=== PATIENT | male | born 1940 | race Caucasian/White ===

== ENCOUNTER → 2021-03-09 | Outpatient (CLI) | payer OTHER, MEDICARE ==
[~2021-03-09] MED LIST: ACET32TAB PO; ACET65TA OR; ALDA25TA2 OR; ALLO100T PO; ALLO300T PO; ASPI81TA83 OR; ATEN100T PO; ATEN25TA PO; ATEN50TA2 OR; CIPR500T4 OR; COLC1TAB14 PO; COUM1TAB17 OR; COUM1TAB18 OR; CYAN500T14 PO; D31000TA2 PO; ELIQ5TAB PO; ENAL10TA2 OR; FLAG500T OR; FLOM0.4C39 OR; FURO40TA2 PO; FURO80TA2 PO; INSUDET SC; INSUH10VL SC; INSULANT SC; IRON65TA2 PO; LASI40TA OR; LASI80TA OR; LOSA25TA14 PO; MAGN400C PO; NIAS500T2 OR; NOVOINJ3 SC; PRAV1TAB39 PO; SIMV20TA22 PO; SPIR-10 PO; SPIR25TA2 OR; VIT D 2000 PO; VITA-243 PO; VITA-56 PO; VITA500T OR; VITA500T PO; VITAMIN B12 PO; WARF1TAB OR; humalog SC; prevachol PO
== END ==
LOC: M LABSMTC 11:49
PROVIDERS: ATTEND Anesthesiology
DX: Z01.812 Encounter for preprocedural laboratory examination (principal); Z20.822 Contact with and (suspected) exposure to COVID-19

== ENCOUNTER 2021-03-14 06:24 | Day surgery (SDC) | payer MEDICARE ==
[~2021-03-14] VITALS: Ht 170.2 cm; Wt 87.0 kg
[~2021-03-14 06:24] MED LIST changes: +LIDOCAINE 1% MDV 20ML VIAL SQ PRN; +LOSA25TA13 PO; -LOSA25TA14 PO
[2021-03-14] MEDS ORDERED: propofoL 200 MG/20 ML VIAL As Ordered ONE (07:10)
[2021-03-14] MEDS ORDERED: fentaNYL 100 MCG/2 ML INJECTION As Ordered ONE (07:10)
[2021-03-14] MEDS ORDERED: LIDOCAINE 2% 100MG/5ML SDV (FOR ANES.) As Ordered ONE (07:10)
[2021-03-14] MEDS ORDERED: ONDANSETRON 4MG/2ML VIAL As Ordered ONE (07:11)
[2021-03-14] MEDS ORDERED: LIDOCAINE 1% SDV 30ML VIAL As Ordered ONE (07:11)
[2021-03-14] MEDS ORDERED: BUPIVACAINE HCL 0.25% 30ML VIAL As Ordered ONE (07:11)
[2021-03-14] MEDS ORDERED: dexameTHASONE 4 MG/ML 1ML VIAL (J1100 PER 1MG) As Ordered ONE (07:11)
[2021-03-14] MEDS ORDERED: LR 1,000 ML IV ONE (07:30)
[2021-03-14] MEDS ORDERED: ceFAZolin SOD 2 GM in IV 1 EA IV ONE (07:30)
[2021-03-14] MEDS ORDERED: BACT800T5 PO (08:28)
[2021-03-14] MEDS ORDERED: HYDR-3713 PO (08:28)
[2021-03-14] MEDS ORDERED: fentaNYL 100 MCG/2 ML INJECTION IV PRN (08:40)
[2021-03-14] MEDS ORDERED: HumaLOG INSULIN (NovoLOG) PER UNIT SC ONE (08:40)
[2021-03-14] MEDS ORDERED: oxyCODONE 5MG TAB PO PRN (08:40)
[2021-03-14] MEDS ORDERED: ONDANSETRON 4MG/2ML VIAL IV PRN (08:40)
[2021-03-14] MEDS ORDERED: LR 1,000 ML IV SCH ×2 (08:40→08:45)
[2021-03-14 10:36] VITALS: BP 132/60
== END 2021-03-14 10:36 | disposition home or self-care (01) ==
LOC: M SDC 06:24
PROVIDERS: ATTEND Urology
DX: R33.9 Retention of urine, unspecified (principal); N31.2 Flaccid neuropathic bladder, not elsewhere classified; E10.9 Type 1 diabetes mellitus without complications; Z79.4 Long term (current) use of insulin; M10.9 Gout, unspecified; I10 Essential (primary) hypertension; E78.5 Hyperlipidemia, unspecified; K57.90 Diverticulosis of intestine, part unspecified, without perforation or abscess without bleeding; G47.33 Obstructive sleep apnea (adult) (pediatric); I48.20 Chronic atrial fibrillation, unspecified; Z79.899 Other long term (current) drug therapy; Z88.0 Allergy status to penicillin; Z88.8 Allergy status to other drugs, medicaments and biological substances
CPT/HCPCS: 51040; J0690; J1100; J2405; J3010

== ENCOUNTER 2022-01-29 15:36 | Inpatient (IN) | payer MEDICARE ==
[~2022-01-29] VITALS: Ht 170.2 cm; Wt 90.1 kg
[~2022-01-29 15:36] MED LIST changes: +BACT800T5 PO; -D31000TA2 PO; +HYDR-3713 PO; -LIDOCAINE 1% MDV 20ML VIAL SQ PRN; +VITA100093 PO
[2022-01-29] MEDS ORDERED: MORPHINE 4 MG/ML 1ML VIAL/SYRINGE IV ONE (17:05)
[2022-01-29 17:44] LABS: BASO % 0.4 % (0.0-1.0); EOS # 0.1 10^3/uL (0.0-0.5); EOS % 1.1 % (0.0-3.0); HEMATOCRIT 36.3 % (42.0-52.0); HEMOGLOBIN 11.7 g/dl (13.5-17.5); LYMPH # 0.5 10^3/uL (1.5-5.0); LYMPH % 4.7 % (24.0-44.0); MEAN CORPUSCULAR HGB CONC 32.2 g/dl (32.0-36.5); MEAN CORPUSCULAR VOLUME 102.3 fl (80.0-96.0); MONO # 1.2 10^3/uL (0.0-0.8); NEUTROPHILS # 8.6 10^3/uL (1.5-8.5); NEUTROPHILS % 81.8 % (36.0-66.0); PLATELET COUNT, AUTOMATED 178 10^3/uL (150-450); RED BLOOD COUNT 3.55 10^6/uL (4.30-6.10); WHITE BLOOD COUNT 10.4 10^3/uL (4.0-10.0)
[2022-01-29 18:04] LABS: ALBUMIN 2.9 GM/DL (3.2-5.2); BILIRUBIN,TOTAL 0.6 MG/DL (0.2-1.0); CALCIUM LEVEL 8.8 MG/DL (8.8-10.2); CREATININE FOR GFR 1.36 MG/DL (0.70-1.30); GLOMERULAR FILTRATION RATE 53.4 (>35); POTASSIUM SERUM 4.5 MEQ/L (3.5-5.1); TOTAL PROTEIN 6.3 GM/DL (6.4-8.2)
[2022-01-29 18:10] LABS: RSV AMPLIFICATION NEGATIVE (NEGATIVE)
[2022-01-29] MEDS ORDERED: methocarbamoL 500 MG TAB PO ONE (18:25)
[2022-01-30] MEDS ORDERED: ACETAMINOPHEN TAB 650MG DOSE (2X325MG) PO PRN (00:25)
[2022-01-30] MEDS ORDERED: HYDROMORPHONE HCL 0.5 MG/ 0.5 ML SYRINGE (J1170 PER 1) IV PRN (00:25)
[2022-01-30 03:30] VITALS: BP 123/77
[2022-01-30] MEDS ORDERED: GLUCOSE 4GM CHEW TABLET PO PRN (03:50)
[2022-01-30] MEDS ORDERED: GLUCAGON INJ 1MG VIAL SC PRN (03:50)
[2022-01-30] MEDS ORDERED: DEXTROSE 50% 50 ML SYRINGE IV PRN (03:50)
[2022-01-30] MEDS ORDERED: ATEN50TA2 PO (04:13)
[2022-01-30] MEDS ORDERED: FURO80TA2 PO (04:13)
[2022-01-30] MEDS ORDERED: ALLO300T2 PO (04:14)
[2022-01-30] MEDS ORDERED: JARD1TAB3 PO (04:14)
[2022-01-30] MEDS ORDERED: HOME MED LIST COMPLETE! XX SCH (04:15)
[2022-01-30 06:00] VITALS: BP 132/72
[2022-01-30] MEDS: DOCUSATE SODIUM 100MG CAPSULE PO SCH ×2 (08:12→21:02)
[2022-01-30] MEDS: INSULIN LISPRO (NovoLOG) PER UNIT SC SCH ×4 (08:13→21:01)
[2022-01-30] MEDS: traMADol 50 MG TAB PO PRN ×2 (11:47→17:49)
[2022-01-30 14:00] VITALS: BP 137/65
[2022-01-30] MEDS: CYANOCOBALAMIN 500 MCG TAB PO SCH (17:03)
[2022-01-30] MEDS: FERROUS SULFATE 325MG TAB PO SCH (17:03)
[2022-01-30 20:07] VITALS: BP 125/73
[2022-01-30] MEDS ORDERED: LEVEMIR (INSULIN DETEMIR) 1 UNITS/0.01ML SC SCH (21:00)
[2022-01-30] MEDS: VITAMIN D 1,000 INTERNATIONAL UNITS TABLET PO SCH (21:02)
[2022-01-30] MEDS: ASCORBIC ACID 500 MG TAB PO SCH (21:02)
[2022-01-30] MEDS: SIMVASTATIN 20 MG TAB PO SCH (21:02)
[2022-01-30] MEDS: APIXABAN 5 MG TAB (ELIQUIS) PO SCH (21:02)
[2022-01-30] MEDS: allopurinoL 300 MG TAB PO SCH (21:02)
[2022-01-31] MEDS: traMADol 50 MG TAB PO PRN (05:12)
[2022-01-31 05:14] VITALS: BP 131/68
[2022-01-31 06:14] LABS: HEMATOCRIT 35.3 % (42.0-52.0); HEMOGLOBIN 11.7 g/dl (13.5-17.5); MEAN CORPUSCULAR HEMOGLOBIN 33.9 pg (27.0-33.0); MEAN CORPUSCULAR HGB CONC 33.1 g/dl (32.0-36.5); MEAN CORPUSCULAR VOLUME 102.3 fl (80.0-96.0); PLATELET COUNT, AUTOMATED 189 10^3/uL (150-450); RED BLOOD COUNT 3.45 10^6/uL (4.30-6.10); WHITE BLOOD COUNT 8.8 10^3/uL (4.0-10.0)
[2022-01-31 06:42] LABS: CALCIUM LEVEL 8.7 MG/DL (8.8-10.2); CREATININE FOR GFR 1.31 MG/DL (0.70-1.30); GLOMERULAR FILTRATION RATE 55.8 (>35); POTASSIUM SERUM 4.3 MEQ/L (3.5-5.1)
[2022-01-31] MEDS: INSULIN LISPRO (NovoLOG) PER UNIT SC SCH ×4 (08:44→21:14)
[2022-01-31 08:52] VITALS: BP 133/68
[2022-01-31] MEDS ORDERED: LEVEMIR (INSULIN DETEMIR) 1 UNITS/0.01ML SC SCH (09:00)
[2022-01-31] MEDS: APIXABAN 5 MG TAB (ELIQUIS) PO SCH ×2 (09:25→21:12)
[2022-01-31] MEDS: FERROUS SULFATE 325MG TAB PO SCH (09:25)
[2022-01-31] MEDS: DOCUSATE SODIUM 100MG CAPSULE PO SCH ×2 (09:25→21:12)
[2022-01-31] MEDS: CYANOCOBALAMIN 500 MCG TAB PO SCH (09:25)
[2022-01-31 11:15] VITALS: BP 128/66
[2022-01-31] MEDS: FUROSEMIDE 20 MG TAB PO SCH ×2 (11:15→17:54)
[2022-01-31] MEDS: traMADol 50 MG TAB PO SCH ×2 (13:30→17:55)
[2022-01-31 14:00] VITALS: BP 143/67
[2022-01-31] MEDS ORDERED: LevoFLOXacin 500 MG TABLET PO ONE (17:45)
[2022-01-31 17:55] VITALS: BP 129/67
[2022-01-31 20:48] VITALS: BP 128/73
[2022-01-31] MEDS: SIMVASTATIN 20 MG TAB PO SCH (21:12)
[2022-01-31] MEDS: allopurinoL 300 MG TAB PO SCH (21:12)
[2022-01-31] MEDS: ASCORBIC ACID 500 MG TAB PO SCH (21:12)
[2022-01-31] MEDS: VITAMIN D 1,000 INTERNATIONAL UNITS TABLET PO SCH (21:12)
[2022-01-31] MEDS: LEVEMIR (INSULIN DETEMIR) 1 UNITS/0.01ML SC SCH (21:13)
[2022-01-31 23:40] LABS: CALCIUM LEVEL 8.1 MG/DL (8.8-10.2); CREATININE FOR GFR 1.23 MG/DL (0.70-1.30)
[2022-02-01 05:37] VITALS: BP 132/72
[2022-02-01] MEDS: traMADol 50 MG TAB PO SCH ×5 (06:05→17:02)
[2022-02-01 06:22] LABS: HEMATOCRIT 34.1 % (42.0-52.0); HEMOGLOBIN 11.6 g/dl (13.5-17.5); MEAN CORPUSCULAR HEMOGLOBIN 34.2 pg (27.0-33.0); MEAN CORPUSCULAR VOLUME 100.6 fl (80.0-96.0); PLATELET COUNT, AUTOMATED 181 10^3/uL (150-450); RED BLOOD COUNT 3.39 10^6/uL (4.30-6.10); WHITE BLOOD COUNT 7.4 10^3/uL (4.0-10.0)
[2022-02-01 06:52] LABS: BLOOD UREA NITROGEN 39 MG/DL (7-18); CALCIUM LEVEL 8.8 MG/DL (8.8-10.2); CARBON DIOXIDE LEVEL 23 MEQ/L (21-32); CHLORIDE LEVEL 102 MEQ/L (98-107); CREATININE FOR GFR 1.18 MG/DL (0.70-1.30); GLOMERULAR FILTRATION RATE > 60.0 (>35); GLUCOSE, FASTING 228 MG/DL (70-100); POTASSIUM SERUM 4.1 MEQ/L (3.5-5.1); SODIUM LEVEL 137 MEQ/L (136-145)
[2022-02-01] MEDS: APIXABAN 5 MG TAB (ELIQUIS) PO SCH ×2 (08:37→20:49)
[2022-02-01] MEDS: LEVEMIR (INSULIN DETEMIR) 1 UNITS/0.01ML SC SCH ×2 (08:37→20:48)
[2022-02-01] MEDS: INSULIN LISPRO (NovoLOG) PER UNIT SC SCH ×4 (08:37→20:48)
[2022-02-01] MEDS: FUROSEMIDE 20 MG TAB PO SCH (08:38)
[2022-02-01] MEDS: CYANOCOBALAMIN 500 MCG TAB PO SCH (08:38)
[2022-02-01] MEDS: DOCUSATE SODIUM 100MG CAPSULE PO SCH ×2 (08:38→20:49)
[2022-02-01] MEDS: FERROUS SULFATE 325MG TAB PO SCH (08:38)
[2022-02-01] MEDS ORDERED: FUROSEMIDE 40MG/4ML VIAL (J1940) IV ONE (09:35)
[2022-02-01 10:01] VITALS: BP 129/67
[2022-02-01] MEDS: guaiFENesin ER 600 MG TAB PO SCH ×2 (10:02→20:50)
[2022-02-01] MEDS ORDERED: LEVEMIR (INSULIN DETEMIR) 1 UNITS/0.01ML SC ONE (12:30)
[2022-02-01] MEDS: LevoFLOXacin 250 MG TABLET PO SCH (17:01)
[2022-02-01] MEDS: FUROSEMIDE 40 MG TAB PO SCH (17:03)
[2022-02-01] MEDS ORDERED: HumuLIN R (REGULAR) INSULIN (NovoLIN R) **100U/ML** PER UNIT IV ONE (20:45)
[2022-02-01] MEDS: SIMVASTATIN 20 MG TAB PO SCH (20:49)
[2022-02-01] MEDS: VITAMIN D 1,000 INTERNATIONAL UNITS TABLET PO SCH (20:49)
[2022-02-01] MEDS: ASCORBIC ACID 500 MG TAB PO SCH (20:49)
[2022-02-01] MEDS: allopurinoL 300 MG TAB PO SCH (20:50)
[2022-02-01] MEDS ORDERED: INSULIN LISPRO (NovoLOG) PER UNIT SC STA (22:38)
[2022-02-01] MEDS ORDERED: NS 500 ML IV ONE (22:40)
[2022-02-01 23:09] LABS: VENOUS BASE EXCESS 2.3 (-2.0-2.0); VENOUS HCO3 27.3 MEQ/L (23.0-27.0); VENOUS O2 SATURATION 92.6 % (60.0-80.0); VENOUS PARTIAL PRESSURE CO2 44.2 mmHg (38.0-50.0); VENOUS PARTIAL PRESSURE O2 67.1 mmHg (30.0-50.0); VENOUS PH 7.409 UNITS (7.330-7.430); VENOUS STANDARD HCO3 26.4 MEQ/L; VENOUS TOTAL CO2 28.7 MEQ/L (24.0-28.0)
[2022-02-02] MEDS: traMADol 50 MG TAB PO SCH ×4 (00:04→17:04)
[2022-02-02 00:16] LABS: CREATININE FOR GFR 1.29 MG/DL (0.70-1.30); GLOMERULAR FILTRATION RATE 56.8 (>35); POTASSIUM SERUM 4.1 MEQ/L (3.5-5.1)
[2022-02-02 00:17] LABS: ACETONE/KETONE 1.34 MG/DL (<2.81); CALCIUM LEVEL 8.7 MG/DL (8.8-10.2)
[2022-02-02 06:00] VITALS: BP 139/73
[2022-02-02 06:18] LABS: HEMATOCRIT 34.6 % (42.0-52.0); HEMOGLOBIN 11.7 g/dl (13.5-17.5); MEAN CORPUSCULAR HEMOGLOBIN 34.1 pg (27.0-33.0); MEAN CORPUSCULAR HGB CONC 33.8 g/dl (32.0-36.5); MEAN CORPUSCULAR VOLUME 100.9 fl (80.0-96.0); PLATELET COUNT, AUTOMATED 183 10^3/uL (150-450); RED BLOOD COUNT 3.43 10^6/uL (4.30-6.10); WHITE BLOOD COUNT 7.9 10^3/uL (4.0-10.0)
[2022-02-02 06:41] LABS: BLOOD UREA NITROGEN 39 MG/DL (7-18); CALCIUM LEVEL 8.8 MG/DL (8.8-10.2); CARBON DIOXIDE LEVEL 28 MEQ/L (21-32); CHLORIDE LEVEL 102 MEQ/L (98-107); CREATININE FOR GFR 1.13 MG/DL (0.70-1.30); GLOMERULAR FILTRATION RATE > 60.0 (>35); GLUCOSE, FASTING 129 MG/DL (70-100); POTASSIUM SERUM 3.6 MEQ/L (3.5-5.1); SODIUM LEVEL 139 MEQ/L (136-145)
[2022-02-02] MEDS: LEVEMIR (INSULIN DETEMIR) 1 UNITS/0.01ML SC SCH ×2 (08:10→21:21)
[2022-02-02] MEDS: APIXABAN 5 MG TAB (ELIQUIS) PO SCH ×2 (08:13→21:23)
[2022-02-02] MEDS: INSULIN LISPRO (NovoLOG) PER UNIT SC SCH ×4 (08:13→21:22)
[2022-02-02] MEDS: DOCUSATE SODIUM 100MG CAPSULE PO SCH ×2 (08:14→21:22)
[2022-02-02] MEDS: CYANOCOBALAMIN 500 MCG TAB PO SCH (08:14)
[2022-02-02] MEDS: FUROSEMIDE 40 MG TAB PO SCH ×2 (08:14→17:04)
[2022-02-02] MEDS: FERROUS SULFATE 325MG TAB PO SCH (08:14)
[2022-02-02] MEDS: guaiFENesin ER 600 MG TAB PO SCH ×2 (08:14→21:23)
[2022-02-02] MEDS: LevoFLOXacin 250 MG TABLET PO SCH (17:05)
[2022-02-02] MEDS: ASCORBIC ACID 500 MG TAB PO SCH (21:22)
[2022-02-02] MEDS: SIMVASTATIN 20 MG TAB PO SCH (21:23)
[2022-02-02] MEDS: VITAMIN D 1,000 INTERNATIONAL UNITS TABLET PO SCH (21:23)
[2022-02-02] MEDS: allopurinoL 300 MG TAB PO SCH (21:23)
[2022-02-03] MEDS: traMADol 50 MG TAB PO SCH ×5 (01:07→23:30)
[2022-02-03 06:00] VITALS: BP 131/70
[2022-02-03 06:43] LABS: HEMATOCRIT 34.4 % (42.0-52.0); HEMOGLOBIN 11.6 g/dl (13.5-17.5); MEAN CORPUSCULAR HEMOGLOBIN 34.2 pg (27.0-33.0); MEAN CORPUSCULAR HGB CONC 33.7 g/dl (32.0-36.5); MEAN CORPUSCULAR VOLUME 101.5 fl (80.0-96.0); PLATELET COUNT, AUTOMATED 198 10^3/uL (150-450); RED BLOOD COUNT 3.39 10^6/uL (4.30-6.10); WHITE BLOOD COUNT 7.5 10^3/uL (4.0-10.0)
[2022-02-03 07:11] LABS: CALCIUM LEVEL 8.4 MG/DL (8.8-10.2); CREATININE FOR GFR 1.23 MG/DL (0.70-1.30); POTASSIUM SERUM 3.6 MEQ/L (3.5-5.1)
[2022-02-03] MEDS: INSULIN LISPRO (NovoLOG) PER UNIT SC SCH ×4 (08:39→20:51)
[2022-02-03] MEDS: LEVEMIR (INSULIN DETEMIR) 1 UNITS/0.01ML SC SCH ×2 (08:40→20:51)
[2022-02-03] MEDS: DOCUSATE SODIUM 100MG CAPSULE PO SCH ×2 (10:10→20:50)
[2022-02-03] MEDS: CYANOCOBALAMIN 500 MCG TAB PO SCH (10:10)
[2022-02-03] MEDS: guaiFENesin ER 600 MG TAB PO SCH ×2 (10:11→20:50)
[2022-02-03] MEDS: FUROSEMIDE 40 MG TAB PO SCH ×2 (10:12→17:17)
[2022-02-03] MEDS: APIXABAN 5 MG TAB (ELIQUIS) PO SCH ×2 (10:12→20:50)
[2022-02-03] MEDS: FERROUS SULFATE 325MG TAB PO SCH (10:12)
[2022-02-03] MEDS: LevoFLOXacin 250 MG TABLET PO SCH (17:17)
[2022-02-03] MEDS: SIMVASTATIN 20 MG TAB PO SCH (20:50)
[2022-02-03] MEDS: ASCORBIC ACID 500 MG TAB PO SCH (20:50)
[2022-02-03] MEDS: allopurinoL 300 MG TAB PO SCH (20:50)
[2022-02-03] MEDS: VITAMIN D 1,000 INTERNATIONAL UNITS TABLET PO SCH (20:50)
[2022-02-04] MEDS: traMADol 50 MG TAB PO SCH ×3 (05:10→17:57)
[2022-02-04 06:00] VITALS: BP 125/67
[2022-02-04 06:39] LABS: HEMOGLOBIN 11.9 g/dl (13.5-17.5); MEAN CORPUSCULAR HEMOGLOBIN 33.1 pg (27.0-33.0); MEAN CORPUSCULAR HGB CONC 33.1 g/dl (32.0-36.5); MEAN CORPUSCULAR VOLUME 100.3 fl (80.0-96.0); PLATELET COUNT, AUTOMATED 221 10^3/uL (150-450); RED BLOOD COUNT 3.59 10^6/uL (4.30-6.10); WHITE BLOOD COUNT 8.1 10^3/uL (4.0-10.0)
[2022-02-04 07:02] LABS: BLOOD UREA NITROGEN 32 MG/DL (7-18); CALCIUM LEVEL 9.1 MG/DL (8.8-10.2); CARBON DIOXIDE LEVEL 29 MEQ/L (21-32); CHLORIDE LEVEL 100 MEQ/L (98-107); CREATININE FOR GFR 1.07 MG/DL (0.70-1.30); GLOMERULAR FILTRATION RATE > 60.0 (>35); GLUCOSE, FASTING 207 MG/DL (70-100); POTASSIUM SERUM 3.7 MEQ/L (3.5-5.1); SODIUM LEVEL 137 MEQ/L (136-145)
[2022-02-04] MEDS: APIXABAN 5 MG TAB (ELIQUIS) PO SCH ×2 (08:09→21:11)
[2022-02-04] MEDS: INSULIN LISPRO (NovoLOG) PER UNIT SC SCH ×4 (08:09→21:11)
[2022-02-04] MEDS: FUROSEMIDE 40 MG TAB PO SCH ×2 (08:09→17:56)
[2022-02-04] MEDS: LEVEMIR (INSULIN DETEMIR) 1 UNITS/0.01ML SC SCH ×2 (08:09→21:11)
[2022-02-04] MEDS: guaiFENesin ER 600 MG TAB PO SCH ×2 (08:09→21:10)
[2022-02-04] MEDS: CYANOCOBALAMIN 500 MCG TAB PO SCH (08:10)
[2022-02-04] MEDS: DOCUSATE SODIUM 100MG CAPSULE PO SCH ×2 (08:10→21:11)
[2022-02-04] MEDS: FERROUS SULFATE 325MG TAB PO SCH (08:10)
[2022-02-04] MEDS: LevoFLOXacin 250 MG TABLET PO SCH (17:56)
[2022-02-04] MEDS: SIMVASTATIN 20 MG TAB PO SCH (21:10)
[2022-02-04] MEDS: VITAMIN D 1,000 INTERNATIONAL UNITS TABLET PO SCH (21:10)
[2022-02-04] MEDS: allopurinoL 300 MG TAB PO SCH (21:11)
[2022-02-04] MEDS: ASCORBIC ACID 500 MG TAB PO SCH (21:11)
[2022-02-05 05:47] VITALS: BP 122/73
[2022-02-05] MEDS: traMADol 50 MG TAB PO SCH ×4 (06:17→17:42)
[2022-02-05] MEDS: INSULIN LISPRO (NovoLOG) PER UNIT SC SCH ×4 (07:32→20:53)
[2022-02-05] MEDS: LEVEMIR (INSULIN DETEMIR) 1 UNITS/0.01ML SC SCH ×2 (09:03→20:52)
[2022-02-05] MEDS: FERROUS SULFATE 325MG TAB PO SCH (09:03)
[2022-02-05] MEDS: FUROSEMIDE 40 MG TAB PO SCH ×2 (09:03→17:42)
[2022-02-05] MEDS: APIXABAN 5 MG TAB (ELIQUIS) PO SCH ×2 (09:03→20:52)
[2022-02-05] MEDS: guaiFENesin ER 600 MG TAB PO SCH ×2 (09:03→20:52)
[2022-02-05] MEDS: DOCUSATE SODIUM 100MG CAPSULE PO SCH ×2 (09:03→20:52)
[2022-02-05] MEDS: CYANOCOBALAMIN 500 MCG TAB PO SCH (09:03)
[2022-02-05 09:04] VITALS: BP 133/77
[2022-02-05 14:00] VITALS: BP 137/100
[2022-02-05] MEDS: LevoFLOXacin 250 MG TABLET PO SCH (17:42)
[2022-02-05 20:03] VITALS: BP 132/71
[2022-02-05] MEDS: VITAMIN D 1,000 INTERNATIONAL UNITS TABLET PO SCH (20:52)
[2022-02-05] MEDS: allopurinoL 300 MG TAB PO SCH (20:52)
[2022-02-05] MEDS: SIMVASTATIN 20 MG TAB PO SCH (20:52)
[2022-02-05] MEDS: ASCORBIC ACID 500 MG TAB PO SCH (20:52)
[2022-02-06 04:42] VITALS: BP 113/63
[2022-02-06] MEDS: traMADol 50 MG TAB PO SCH ×3 (05:07→12:31)
[2022-02-06] MEDS: INSULIN LISPRO (NovoLOG) PER UNIT SC SCH ×2 (07:44→12:28)
[2022-02-06] MEDS: APIXABAN 5 MG TAB (ELIQUIS) PO SCH (08:42)
[2022-02-06] MEDS: FERROUS SULFATE 325MG TAB PO SCH (08:42)
[2022-02-06] MEDS: LEVEMIR (INSULIN DETEMIR) 1 UNITS/0.01ML SC SCH (08:42)
[2022-02-06 08:43] VITALS: BP 134/70
[2022-02-06] MEDS: DOCUSATE SODIUM 100MG CAPSULE PO SCH (08:43)
[2022-02-06] MEDS: CYANOCOBALAMIN 500 MCG TAB PO SCH (08:43)
[2022-02-06] MEDS: FUROSEMIDE 40 MG TAB PO SCH (08:43)
[2022-02-06] MEDS: guaiFENesin ER 600 MG TAB PO SCH (08:43)
[2022-02-06] MEDS ORDERED: TRAM50TA2 PO (11:11)
[2022-02-06] MEDS ORDERED: LEVO250T3 PO (11:11)
[2022-02-06] MEDS ORDERED: MUCI600T31 PO (11:11)
[2022-02-06 12:31] VITALS: BP 157/81
== END 2022-02-06 12:40 | disposition home health service (06) | DRG 605 ==
LOC: M ED 15:36 → M ED INP 15:37 → ENRESERV 01-30 01:51 → M MSPAV 01-30 03:24 → OBSVTOIN 01-30 10:06
PROVIDERS: ADMIT Internal Medicine; ATTEND General Practice
DX: S70.01XA Contusion of right hip, initial encounter (principal); I50.22 Chronic systolic (congestive) heart failure; I48.20 Chronic atrial fibrillation, unspecified; W01.0XXA Fall on same level from slipping, tripping and stumbling without subsequent striking against object, initial encounter; Y92.009 Unspecified place in unspecified non-institutional (private) residence as the place of occurrence of the external cause; S70.02XA Contusion of left hip, initial encounter; I95.9 Hypotension, unspecified; Z20.822 Contact with and (suspected) exposure to COVID-19; M10.9 Gout, unspecified; I11.0 Hypertensive heart disease with heart failure; Z79.891 Long term (current) use of opiate analgesic; E11.9 Type 2 diabetes mellitus without complications; Z95.810 Presence of automatic (implantable) cardiac defibrillator; Z90.49 Acquired absence of other specified parts of digestive tract; Z88.0 Allergy status to penicillin; Z88.8 Allergy status to other drugs, medicaments and biological substances; M47.9 Spondylosis, unspecified; M48.061 Spinal stenosis, lumbar region without neurogenic claudication; E66.9 Obesity, unspecified; Z68.31 Body mass index [BMI] 31.0-31.9, adult

== ENCOUNTER → 2022-05-02 | Outpatient (CLI) | payer MEDICARE ==
[~2022-05-02] MED LIST changes: +ALLO300T2 PO; +ATEN50TA2 PO; +JARD1TAB3 PO; +LEVO1TAB38 PO; +MUCI600T31 PO; +TRAM50TA2 PO
== END ==
LOC: M SOG 08:43
PROVIDERS: ATTEND Orthopaedic Surgery
DX: M47.817 Spondylosis without myelopathy or radiculopathy, lumbosacral region (principal); M25.78 Osteophyte, vertebrae

== ENCOUNTER → 2023-08-14 | Outpatient (CLI) | payer MEDICARE | LOC: M SLEEP 20:00 | PROVIDERS: ATTEND Nurse Practitioner Adult Health | DX: G47.33 Obstructive sleep apnea (adult) (pediatric) (principal); G47.61 Periodic limb movement disorder ==

== ENCOUNTER → 2023-09-12 | Outpatient (REF) | payer MEDICARE ==
[2023-09-12 17:34] LABS: VITAMIN B12 LEVEL 396 PG/ML (211-911)
[2023-09-12 17:39] LABS: FOLATE > 24.0 NG/ML (>5.4)
== END ==
LOC: M LAB REF 16:48
PROVIDERS: ATTEND Physician Assistant Medical
DX: I13.0 Hypertensive heart and chronic kidney disease with heart failure and stage 1 through stage 4 chronic kidney disease, or unspecified chronic kidney disease (principal)

== ENCOUNTER → 2023-12-19 | Outpatient (CLI) | payer MEDICARE | LOC: M CARPUL 12:51 | PROVIDERS: ATTEND Internal Medicine | DX: I48.21 Permanent atrial fibrillation (principal); I08.3 Combined rheumatic disorders of mitral, aortic and tricuspid valves ==

== ENCOUNTER → 2024-10-08 | Outpatient (REF) | payer MEDICARE, OTHER ==
[2024-10-08 14:46] LABS: FOLATE 10.6 NG/ML (>5.4)
== END ==
LOC: M LAB REF 12:40
PROVIDERS: ATTEND Internal Medicine
DX: R41.3 Other amnesia (principal)

== ENCOUNTER 2024-11-17 08:48 | Outpatient (CLI) | payer MEDICARE ==
[~2024-11-17] VITALS: Ht 170.2 cm; Wt 94.1 kg
[~2024-11-17 08:48] MED LIST changes: +ALBUTEROL SULFATE 2.5MG/0.5ML INH CONCENTRATE NEB SOLN INH PRN; +EPINEPHrine INJ 1 MG/ML 1ML AMP IM PRN; +diphenhydrAMINE 50MG/ML VIAL IV PRN; +methylPREDNISolone 125MG 2ML VIAL IV PRN
[2024-11-17 09:20] VITALS: BP 113/59
[2024-11-17] MEDS: IRON SUCROSE 500 MG in NS 250 ML OVER 4 HRS IV ONE (09:59)
[2024-11-17 11:00] VITALS: BP 128/62; O2SAT 98
[2024-11-17 12:00] VITALS: BP 125/60; O2SAT 97
[2024-11-17 13:00] VITALS: BP 140/69; O2SAT 98
[2024-11-17 14:25] VITALS: BP 134/65; O2SAT 98
== END 2024-11-17 14:25 | disposition home or self-care (01) ==
LOC: M INFU 08:48
PROVIDERS: ATTEND Internal Medicine
DX: D50.9 Iron deficiency anemia, unspecified (principal); Z88.0 Allergy status to penicillin; Z88.8 Allergy status to other drugs, medicaments and biological substances
CPT/HCPCS: 96365; 96366; J1756

== ENCOUNTER 2024-11-24 08:30 | Outpatient (CLI) | payer MEDICARE ==
[~2024-11-24] VITALS: Ht 170.2 cm; Wt 88.6 kg
[2024-11-24 08:30] VITALS: BP 149/66; O2SAT 97
[2024-11-24] MEDS: IRON SUCROSE 500 MG in NS 250 ML OVER 4 HRS IV ONE (09:05)
[2024-11-24 10:00] VITALS: BP 131/62; O2SAT 97
[2024-11-24 11:00] VITALS: BP 143/63; O2SAT 100
[2024-11-24 12:00] VITALS: BP 144/69; O2SAT 98
[2024-11-24 13:18] VITALS: BP 121/54; O2SAT 99
== END 2024-11-24 13:20 ==
LOC: M INFU 08:30
PROVIDERS: ATTEND Internal Medicine
DX: D50.9 Iron deficiency anemia, unspecified (principal); Z88.0 Allergy status to penicillin; Z88.8 Allergy status to other drugs, medicaments and biological substances
CPT/HCPCS: 96365; 96366; J1756

== ENCOUNTER → 2025-05-25 | Outpatient (REF) | payer MEDICARE ==
[~2025-05-25] MED LIST changes: -ALBUTEROL SULFATE 2.5MG/0.5ML INH CONCENTRATE NEB SOLN INH PRN; -EPINEPHrine INJ 1 MG/ML 1ML AMP IM PRN; +ROPI0.5T33 PO; -diphenhydrAMINE 50MG/ML VIAL IV PRN; -methylPREDNISolone 125MG 2ML VIAL IV PRN
[2025-05-25 15:19] LABS: IRON (FE) 54.0 UG/DL (65-175); PERCENT SATURATION 16.8 % (19.7-50.0)
== END ==
LOC: M LAB REF 14:27
PROVIDERS: ATTEND Internal Medicine
DX: N18.9 Chronic kidney disease, unspecified (principal); D63.1 Anemia in chronic kidney disease; D50.9 Iron deficiency anemia, unspecified